=== PATIENT | female | born 1985 | race Caucasian/White ===

== ENCOUNTER → 2019-01-21 | Outpatient (CLI) | payer SELFPAY ==
[~2019-01-21] MED LIST: AMPH30TA3 PO; PREN-196 PO; PROM25 PO
== END | disposition home or self-care (01) ==
LOC: RAH 14:52
PROVIDERS: ATTEND Family Medicine
DX: Z12.31 Encounter for screening mammogram for malignant neoplasm of breast (principal)
CPT/HCPCS: 77067

== ENCOUNTER 2020-07-10 16:13 | Inpatient (IN) | payer BC ==
[~2020-07-10] VITALS: Ht 157.5 cm; Wt 68.9 kg
[2020-07-10 17:25] LABS: BASOPHILS % (AUTO) 0.1 % (0.0-5.0); EOSINOPHILS % (AUTO) 0.6 % (0.0-8.0); HEMATOCRIT 32.5 % (36-48); LYMPHOCYTES % (AUTO) 11.3 % (21.0-51.0); MEAN CORPUSCULAR HEMOGLOBIN 30.1 pg (27.0-33.0); MEAN CORPUSCULAR HGB CONC 34.2 g/dL (32.0-36.0); MEAN CORPUSCULAR VOLUME 88.1 fL (79-99); MONOCYTES % (AUTO) 6.3 % (3.0-13.0); NEUTROPHILS % (AUTO) 81.1 % (40.0-77.0); PLATELET COUNT (AUTO) 220 K/uL (130-400); RED BLOOD CELL COUNT(AUTO) 3.69 MIL/uL (4.00-5.50); RED CELL DISTRIBUTION WIDTH 13.3 % (11.0-15.5); WHITE BLOOD COUNT (AUTO) 9.5 K/uL (4.8-10.8)
[2020-07-10 17:28] LABS: APPEARANCE,URINE Turbid (CLEAR); BILIRUBIN,URINE Negative (NEGATIVE); COLOR,URINE Yellow (YELLOW); GLUCOSE, URINE (UA) Negative (NEGATIVE); KETONES,URINE Negative (NEGATIVE); LEUKOCYTE ESTERASE ,URINE Moderate (NEGATIVE); NITRATE,URINE Negative (NEGATIVE); OCCULT BLOOD,URINE Trace (NEGATIVE); PROTEIN,URINE Negative (NEGATIVE); UROBILINOGEN,URINE 0.2 mg/dL (0.2-1.0)
[2020-07-10 17:42] LABS: BACTERIA,URINE Few /HPF (None Seen)
[2020-07-10 17:43] LABS: RBC,URINE 0-1 /HPF (0-1)
[2020-07-10 17:50] LABS: INR 0.91 (0.85-1.15); PROTHROMBIN TIME 9.8 SEC (9.6-11.6)
[2020-07-10 17:51] LABS: ALBUMIN 2.3 g/dL (3.5-5.0); BILIRUBIN,TOTAL 0.2 mg/dL (0.2-1.0); CREATININE 0.8 mg/dL (0.5-1.5); PARTIAL THROMBOPLASTIN TIME 29.7 SEC (26.3-35.5); TOTAL PROTEIN, SERUM 6.1 g/dL (6.0-8.3); URIC ACID 3.5 mg/dL (2.6-7.2)
[2020-07-10 17:55] LABS: POTASSIUM 2.9 mmol/L (3.5-5.1)
[2020-07-10] MEDS ORDERED: LIDOCAINE HCL-MPF 1% 2ML VIAL IM PRN (18:45)
[2020-07-10 19:00] VITALS: BP 145/95
[2020-07-10] MEDS: CELESTONE SOLUSPAN 6 MG/ML 5ML VIAL IM SCH (20:11)
[2020-07-10] MEDS: POTASSIUM CHLORIDE 20MEQ/100ML 100 ML IV PRN (20:51)
[2020-07-11] MEDS: POTASSIUM CHLORIDE 20MEQ/100ML 100 ML IV PRN (00:10)
[2020-07-11] MEDS ORDERED: LACTATED RINGERS 1000ML 1,000 ML IV SCH (03:30)
[2020-07-11 06:40] LABS: BASOPHILS % (AUTO) 0.1 % (0.0-5.0); HEMATOCRIT 33.1 % (36-48); LYMPHOCYTES % (AUTO) 5.9 % (21.0-51.0); MEAN CORPUSCULAR HEMOGLOBIN 30.4 pg (27.0-33.0); MEAN CORPUSCULAR HGB CONC 34.1 g/dL (32.0-36.0); MONOCYTES % (AUTO) 0.8 % (3.0-13.0); NEUTROPHILS % (AUTO) 92.5 % (40.0-77.0); PLATELET COUNT (AUTO) 227 K/uL (130-400); RED BLOOD CELL COUNT(AUTO) 3.72 MIL/uL (4.00-5.50); RED CELL DISTRIBUTION WIDTH 13.6 % (11.0-15.5); WHITE BLOOD COUNT (AUTO) 13.4 K/uL (4.8-10.8)
[2020-07-11 06:53] LABS: INR 0.92 (0.85-1.15); PROTHROMBIN TIME 9.9 SEC (9.6-11.6)
[2020-07-11 06:54] LABS: PARTIAL THROMBOPLASTIN TIME 30.8 SEC (26.3-35.5)
[2020-07-11 06:55] LABS: ALBUMIN 2.1 g/dL (3.5-5.0); BILIRUBIN,TOTAL 0.3 mg/dL (0.2-1.0); CREATININE 0.7 mg/dL (0.5-1.5); POTASSIUM 3.9 mmol/L (3.5-5.1); TOTAL PROTEIN, SERUM 5.9 g/dL (6.0-8.3); URIC ACID 5.3 mg/dL (2.6-7.2)
[2020-07-11] MEDS: CELESTONE SOLUSPAN 6 MG/ML 5ML VIAL IM SCH (08:02)
[2020-07-11] MEDS ORDERED: OXYTOCIN-LR 20 UNITS/1000 ML 1,000 ML IV SCH (09:15)
[2020-07-11] MEDS ORDERED: LACTATED RINGERS 500 ML 500 ML IV PRN (09:15)
[2020-07-11] MEDS ORDERED: EPHEDRINE SULFATE 50 MG/ML AMPULE IVP PRN (09:15)
[2020-07-11] MEDS ORDERED: NALOXONE HCL 0.4 MG/1 ML ML IV PRN (09:15)
[2020-07-11] MEDS ORDERED: ROPIVACAINE 0.2% 100ML VIAL 100 ML EP PRN (09:15)
[2020-07-11] MEDS: OXYTOCIN-LR 20 UNITS/1000 ML 1,000 ML IV SCH (09:25)
[2020-07-11] MEDS ORDERED: FENTANYL CITRATE PF 50 MCG/1 ML 2ML VIAL ONE (12:02)
[2020-07-11] MEDS ORDERED: LIDOCAINE HCL 2% 20ML ONE (12:23)
[2020-07-11] MEDS: CLINDAMYCIN 600 MG/D5% WATER 50 ML IVPB SCH ×2 (15:57→22:05)
[2020-07-11 19:07] LABS: CREATININE,SERUM FOR CRCL 0.7 mg/dL (0.6-1.3)
[2020-07-11 19:26] LABS: COLLECTION PERIOD,URINE 24 HR; TOTAL VOLUME 24HRS,URINE 1800 mL; TPROTEIN TIMED,URINE 24 mg/dL; TPROTEIN U,24HR CALC 432 mg/24HR (0-165)
[2020-07-12] MEDS: OXYTOCIN-LR 20 UNITS/1000 ML 1,000 ML IV SCH (03:01)
[2020-07-12] MEDS: CLINDAMYCIN 600 MG/D5% WATER 50 ML IVPB SCH (03:54)
[2020-07-12] MEDS ORDERED: PANT20TA18 PO (04:36)
[2020-07-12] MEDS ORDERED: BENZOCAINE/LANOLIN/ALOE VERA 60 ML AEROSOL TP PRN (07:15)
[2020-07-12] MEDS ORDERED: DIPH,PERTUSS(ACELL),TET VAC/PF 0.5 ML VIAL IM PRN (07:15)
[2020-07-12] MEDS ORDERED: WITCH HAZEL 1 PAD TP PRN (07:15)
[2020-07-12] MEDS ORDERED: ACETAMINOPHEN 325 MG TAB PO PRN (07:15)
[2020-07-12] MEDS ORDERED: MEASLES/MUMPS/RUBELLA VACCINE, LIVE 0.5 ML/VIAL SQ PRN (07:15)
[2020-07-12] MEDS ORDERED: IBUPROFEN 600 MG TABLET PO PRN (07:15)
[2020-07-12] MEDS ORDERED: LANOLIN 30GM OINTMENT TP PRN (07:15)
[2020-07-12] MEDS ORDERED: ACETAMINOPHEN-CODEINE 300/30MG TAB PO PRN (07:15)
[2020-07-12] MEDS ORDERED: NIFEDIPINE 10 MG CAP PO SCH (07:40)
[2020-07-12] MEDS: PANTOPRAZOLE SODIUM 40 MG TABLET.DR PO SCH (08:47)
[2020-07-12] MEDS: DOCUSATE SODIUM 100 MG CAP PO SCH ×2 (08:47→20:58)
[2020-07-12] MEDS ORDERED: PHARMACY COMMUNICATION MISC SCH (09:00)
[2020-07-12 09:30] VITALS: BP 143/89
[2020-07-12 11:55] VITALS: BP 144/87
[2020-07-12] MEDS ORDERED: FLU VACC QS2020-21(6MOS UP)/PF 60 MCG/0.5 ML ML IM ONE (15:30)
[2020-07-12 15:52] VITALS: BP 138/83
[2020-07-12 19:25] VITALS: BP 136/80
[2020-07-12 23:27] VITALS: BP 116/72
[2020-07-13] MEDS: DOCUSATE SODIUM 100 MG CAP PO SCH (09:00)
[2020-07-13] MEDS ORDERED: ADDERALL 30MG PO SCH (09:00)
[2020-07-13] MEDS: PANTOPRAZOLE SODIUM 40 MG TABLET.DR PO SCH (09:00)
[2020-07-13 11:59] VITALS: BP 139/93
== END 2020-07-13 17:00 | disposition home or self-care (01) | DRG 806 ==
LOC: UNDOADMOB 16:13 → EDHIP 16:13 → LDH 16:15 → OBSVTOIN 07-11 09:09 → WSH 07-12 09:30
PROVIDERS: ADMIT Obstetrics & Gynecology; ATTEND Obstetrics & Gynecology
PROC: 10E0XZZ Delivery of Products of Conception, External Approach (ICD-10-PCS; principal; 2020-07-12)
PROC: 10907ZC Drainage of Amniotic Fluid, Therapeutic from Products of Conception, Via Natural or Artificial Opening (ICD-10-PCS; 2020-07-12)
PROC: 3E0R3BZ Introduction of Anesthetic Agent into Spinal Canal, Percutaneous Approach (ICD-10-PCS; 2020-07-12)
PROC: 00HU33Z Insertion of Infusion Device into Spinal Canal, Percutaneous Approach (ICD-10-PCS; 2020-07-12)
PROC: 3E0234Z Introduction of Serum, Toxoid and Vaccine into Muscle, Percutaneous Approach (ICD-10-PCS; 2020-07-12)
PROC: 3E0134Z Introduction of Serum, Toxoid and Vaccine into Subcutaneous Tissue, Percutaneous Approach (ICD-10-PCS; 2020-07-12)
PROC: 3E02340 Introduction of Influenza Vaccine into Muscle, Percutaneous Approach (ICD-10-PCS; 2020-07-12)
DX: O60.14X0 Preterm labor third trimester with preterm delivery third trimester, not applicable or unspecified (principal); O99.119 Other diseases of the blood and blood-forming organs and certain disorders involving the immune mechanism complicating pregnancy, unspecified trimester; Z37.0 Single live birth; O69.81X0 Labor and delivery complicated by cord around neck, without compression, not applicable or unspecified; O14.04 Mild to moderate pre-eclampsia, complicating childbirth; O99.62 Diseases of the digestive system complicating childbirth; K21.9 Gastro-esophageal reflux disease without esophagitis; O99.824 Streptococcus B carrier state complicating childbirth; M32.9 Systemic lupus erythematosus, unspecified; Z3A.35 35 weeks gestation of pregnancy; Z88.5 Allergy status to narcotic agent; Z88.0 Allergy status to penicillin; Z88.8 Allergy status to other drugs, medicaments and biological substances; Z91.048 Other nonmedicinal substance allergy status; Z23 Encounter for immunization
CPT/HCPCS: 36415; 80053; 81001; 82575; 84156; 84550; 85025; 85384; 85610; 85730; 87088; 90715; A4314; G0378; J0702; J2590; J2795; J3010; J3480; J3490; J7120; Q2035

== ENCOUNTER → 2021-10-26 | Outpatient (CLI) | payer BC ==
[~2021-10-26] MED LIST changes: +PANT20TA18 PO
== END | disposition home or self-care (01) ==
LOC: RAH 09:39
PROVIDERS: ATTEND Nurse Practitioner Family
DX: Z12.31 Encounter for screening mammogram for malignant neoplasm of breast (principal)
CPT/HCPCS: 77067

== ENCOUNTER 2023-07-10 20:23 | Observation (INO) | payer BC ==
[~2023-07-10] VITALS: Ht 157.5 cm; Wt 71.2 kg
[2023-07-10 20:47] VITALS: BP 145/91; PULSE 110; RESP 20
[2023-07-10 21:37] LABS: ADD UA MICROSCOPIC YES; APPEARANCE,URINE CLEAR (CLEAR); BILIRUBIN,URINE NEGATIVE (NEGATIVE); COLOR,URINE LIGHT-YELLOW (YELLOW); GLUCOSE, URINE (UA) NEGATIVE (NEGATIVE); KETONES,URINE 5 mg/dL (NEGATIVE); LEUKOCYTE ESTERASE ,URINE NEGATIVE Leu/uL (NEGATIVE); NITRATE,URINE NEGATIVE (NEGATIVE); OCCULT BLOOD,URINE NEGATIVE (NEGATIVE); PH,URINE 6.5 (5.0-8.0); PROTEIN,URINE 10 mg/dL (NEGATIVE); UROBILINOGEN,URINE 0.2 mg/dL (0.2-1.0)
[2023-07-10 21:39] LABS: RBC,URINE 0-1 /HPF (0-1); SQUAMOUS EPITHELIAL CELL,UR FEW /HPF (0-2); WBC,URINE 0-1 /HPF (0-1)
[2023-07-10] MEDS: LACTATED RINGERS 1000ML 1,000 ML IV PRN ×2 (22:15→23:21)
== END 2023-07-11 08:40 | disposition home or self-care (01) ==
LOC: EDH 20:23 → LDH 21:15
PROVIDERS: ADMIT Obstetrics & Gynecology; ATTEND Obstetrics & Gynecology
DX: O62.9 Abnormality of forces of labor, unspecified (principal); Z3A.37 37 weeks gestation of pregnancy
CPT/HCPCS: 96361 ×2; 96360; 81001; G0378 ×12; G0379; J7120

== ENCOUNTER → 2024-05-15 | Outpatient (CLI) | payer BC ==
[~2024-05-15] MED LIST changes: -AMPH30TA3 PO; -PANT20TA18 PO; -PROM25 PO
== END | disposition home or self-care (01) ==
LOC: RAH 10:59
PROVIDERS: ATTEND Family Medicine
DX: Z12.31 Encounter for screening mammogram for malignant neoplasm of breast (principal); R92.343 Mammographic extreme density, bilateral breasts
CPT/HCPCS: 77067